=== PATIENT | female | born 1995 | race Caucasian/White ===

== ENCOUNTER → 2017-10-17 | Outpatient (CLI) | payer BC, OTHER ==
[~2017-10-17] MED LIST: CHOL100040 PO; MULT-506 PO
--- NOTE | 2017-10-17 11:11 | DIAGNOSTIC IMAGING REPORT ---
L KNEE 4 OR MORE CLINICAL HISTORY: LEFT PATELLAR PAIN COMPARISON STUDY: None. FINDINGS: No acute fracture or dislocation within the left knee. No significant knee effusion. Soft tissues are unremarkable. Cartilage spaces are maintained for age. No radiopaque foreign bodies. Small bony fragment at the tibial tubercle is likely chronic. IMPRESSION: No fracture or dislocation within the left knee. Electronically signed by: Declan Rosenberg M.D. 10/17/2017 11:10 AM Dictated Date/Time: 10/17/2017 11:08 AM
== END | disposition home or self-care (01) ==
LOC: C.RDSM 10:48
PROVIDERS: ATTEND Internal Medicine
DX: M25.562 Pain in left knee (principal); N39.0 Urinary tract infection, site not specified

== ENCOUNTER → 2018-01-01 | Outpatient (CLI) | payer OTHER ==
--- NOTE | 2018-01-01 15:44 | DIAGNOSTIC IMAGING REPORT ---
L LOWER EXT JOINT WITHOUT CLINICAL HISTORY: M25.562 left knee pain COMPARISON STUDY: Image radiographic study dated 10/17/2017 FINDINGS: Imaging was performed in the axial, sagittal, and coronal planes. There are no areas of marrow edema to indicate occult fracture or bone bruise. The anterior and posterior cruciate ligaments appear normal. The medial and lateral menisci appear intact. There is no evidence of medial or collateral ligament disruption. The patellar retinacular structures appear intact. There is moderate partial-thickness tear of the infrapatellar tendon. There is associated fluid/edema within the infrapatellar fat pad. There is a 9 mm avulsion fragment which likely arises from the anterior tibial tuberosity. IMPRESSION: Moderate partial-thickness tear of the infrapatellar tendon near the tibial insertion. At the level of the tear is a 9 mm avulsion fragment which likely arises from the anterior tibial tuberosity Electronically signed by: Nico Sherman M.D. 01/01/2018 3:43 PM Dictated Date/Time: 01/01/2018 3:38 PM
== END | disposition home or self-care (01) ==
LOC: C.MRIBC 14:59
PROVIDERS: ATTEND Internal Medicine
DX: M25.562 Pain in left knee (principal); S86.812A Strain of other muscle(s) and tendon(s) at lower leg level, left leg, initial encounter; X58.XXXA Exposure to other specified factors, initial encounter

== ENCOUNTER 2023-09-30 06:17 | Inpatient (IN) ==
[2023-09-30] MEDS ORDERED: OXYTOCIN 30 UNITS/NSS 30 UNITS/500 ML BAG IV PRN ×3 (07:12→21:39)
[2023-09-30] MEDS ORDERED: LACTATED RINGER'S 1,000 ML IV PRN (07:12)
--- NOTE | 2023-09-30 08:27 | History & Physical Report ---
Date of Service September 30, 2023 Assessment & Plan (1) Supervision of normal first : Plan: IUP at term with SPROM and spontaneous labor GBS- negative planning unmedicated epidural if requested anticipate vaginal Admission and Anticipated Discharge Date Admission Date: September 30, 2023 History of Present Illness Primary Care Provider: NO PCP Patient is a 28 yo female EDC 10/02/23 who presents with SPROM of clear fluid at 0140 -regular contractions started shortly after SPROM. has been uncomplicated except will need Rubella vaccine prior to discharge. GBS- negative Allergies Allergy/AdvReac Type Severity Reaction Status Date / Time No Known Drug Allergies Allergy Unknown . Verified 09/30/23 08:13 nickel AdvReac Unknown SKIN Verified 09/30/23 08:13 IRRITATION Home Medications Medication Instructions Recorded Confirmed Type cholecalciferol (vitamin D3) 1,000 mg PO DAILY 02/14/23 09/30/23 History docosahexaenoic acid [Algal 1 pill PO DAILY 02/14/23 09/30/23 History Dodge-3 DHA] prenat.vits,jeremy,osw-xsuj-tluxl 1 tab PO DAILY 02/14/23 09/30/23 History Patient History Medical History Cold sore Varicella vaccine Surgical History S/P ACL surgery S/P lateral meniscal repair S/P wisdom tooth extraction Family History Aunt Breast cancer Uncle Brain cancer Grandfather (Paternal) Lung cancer Mother Skin cancer Grandmother Uterine cancer Denies family history of Ovarian cancer Colorectal cancer Social History (Updated 09/30/23 @ 08:14 by Jie Soto RN) Smoking Status: Never smoker Do You Dip or Chew Tobacco: No; Hx Alcohol Use: No Hx Substance Use: No Preferred Language: [place] Communication Ability: Effective Facility Rehab Director Required: No Beliefs That Will Affect Care: None marital status: marital status details: Ravinder Blancas ( 27) [phone] Current Living Situation: Spouse Current Living Situation Comment: lives and 1 dog current occupational status: employed 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, [employer]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 Gender Identity: Female Assistive Devices: Contacts Review of Systems All systems reviewed & are unremarkable except as noted in HPI & below Physical Exam Constitutional: WD/WN, vitals as above Psychiatric: A+Ox3, euthymic affect Genitourinary: OB Exam Abdomen: + vertex, + estimated weight (8-9 pounds) and + regular contractions Manual OB Exam: + cervical dilation 6 cm, + cervical effacement 100%, + station -1 and + amniotic fluid clear Results & Data Vital Signs (Past 12 Hours) Vital Signs Temp Pulse Resp BP 09/30/23 07:41 98.2 F 18 09/30/23 07:00 86 122/73 09/30/23 06:41 176 H 140/111 H 09/30/23 06:29 20 09/30/23 06:29 98.2 F 20 Code Status & VTE Plan VTE Prophylaxis Plan VTE Prophylaxis will be ordered: No Coding Level of Care Code None Diagnoses Supervision of normal first Z34.00
[2023-09-30 08:44] LABS: Hematocrit (blood only) 37.7 % (37.0-47.0); Hemoglobin 13.4 g/dl (12.0-16.0); Mean Corpuscular Hemoglobin 32.5 pg (25.0-34.0); Mean Corpuscular Hgb Conc 35.5 g/dL (32.0-36.0); Mean Corpuscular Volume 91.5 fL (80.0-100.0); Mean Platelet Volume 11.9 fL (9.4-12.4); Platelet Count 166 K/uL (130-400); RDW Coefficient of Variation 11.7 % (11.5-14.5); RDW Standard Deviation 39.3 fL (36.4-46.3); Red Blood Count 4.12 M/uL (4.20-5.40); White Blood Count 17.95 K/ul (4.8-10.8)
[2023-09-30] MEDS: LIDOCAINE 1% LOCAL 20 ML VIAL INFIL PRN ×2 (21:30→22:15)
[2023-09-30] MEDS ORDERED: HYDROCORTISONE ACETATE 25 MG SUPP PR PRN (21:39)
[2023-09-30] MEDS ORDERED: DIPHTHERIA/TETANUS/PERTUSSIS Vaccine (Tdap, Age 7+yrs) 0.5mL SYR/VL IM ONE (21:39)
[2023-09-30] MEDS ORDERED: oxyCODONE/ACETAMINOPHEN 5mg/325mg TAB PO PRN (21:39)
[2023-09-30] MEDS ORDERED: bisacodyL 10 MG SUPP PR PRN (21:39)
[2023-09-30] MEDS ORDERED: BENZOCAINE 20% SPRY 85 APPLN/85 GM CAN EXT PRN (21:39)
--- NOTE | 2023-09-30 21:48 | Delivery Summary ---
Vaginal Delivery Summary Date of Service September 30, 2023 Vaginal Delivery Summary and 1st Degree LAC Patient is a 28-year-old 1 P0 female EDC of 10/02/2023 who presented with spontaneous rupture of membranes and then onset of spontaneous labor. She progressed to an anterior lip but required Pitocin augmentation to progressed to full dilation. Once fully dilated, she pushed effectively over intact perineum for delivery of a viable male infant. After the head was delivered the rest of the was delivered without maternal effort. He was placed on the mother's abdomen for further attention and drying. He was vigorous crying and moving all 4 limbs. After 4 minutes per the family's request, the cord was clamped and cut. Placenta was then expressed intact with a three-vessel cord. bleeding was controlled with fundal massage and dilute Pitocin. A first-degree vaginal laceration and first-degree right labial laceration were repaired with 3-0 chromic in the usual fashion. 1% lidocaine was used to anesthetize the laceration sites prior to repair. Estimated blood loss 250 cc. This was an unmedicated . Mother and were doing well after delivery. [facility] [place]aginal Delivery Charge Delivery Type Details: and 1st Degree LAC
[2023-09-30] MEDS: IBUPROFEN 600 MG TAB PO PRN (22:15)
[2023-09-30] MEDS: ACETAMINOPHEN 325 MG TAB PO PRN (22:15)
[2023-10-01] MEDS: IBUPROFEN 600 MG TAB PO PRN ×5 (03:20→19:31)
[2023-10-01 06:34] LABS: Hematocrit (blood only) 35.6 % (37.0-47.0); Hemoglobin 12.2 g/dl (12.0-16.0); Mean Corpuscular Hemoglobin 31.9 pg (25.0-34.0); Mean Corpuscular Hgb Conc 34.3 g/dL (32.0-36.0); Platelet Count 161 K/uL (130-400); RDW Coefficient of Variation 11.9 % (11.5-14.5); Red Blood Count 3.83 M/uL (4.20-5.40); White Blood Count 16.56 K/ul (4.8-10.8)
--- NOTE | 2023-10-01 07:44 | Obstetrical Progress Note ---
Date of Service October 01, 2023 Assessment & Plan (1) Encounter for care and examination after delivery: satisfactory course continue current care plan Subjective Ambulation: ambulating normally Voiding: no voiding problems Passing Gas:: Yes Diet Tolerance:: regular diet Lochia:: Small Feeding Type:: breast feeding Review of Systems All systems reviewed & are unremarkable except as noted in HPI & below Physical Exam Constitutional WD/WN, vitals as above Psychiatric A+Ox3, euthymic affect Genitourinary OB Exam Abdomen: + fundal height Fundus: + firm and + relation to umbilicus (1 below U) Results & Data Vital Signs (Past 12 Hours) Vital Signs Temp Pulse Pulse Resp BP BP O2 Del Method 10/01/23 03:30 98.1 F 82 16 125/71 Room Air 10/01/23 00:05 97.5 F L 83 16 115/70 Room Air 09/30/23 23:31 92 H 112/63 09/30/23 23:30 99.1 F 18 09/30/23 23:16 109 H 117/62 09/30/23 23:01 76 113/62 09/30/23 23:00 18 09/30/23 22:46 97 H 110/66 09/30/23 22:31 93 H 123/73 09/30/23 22:30 18 09/30/23 22:16 92 H 121/63 09/30/23 22:15 18 09/30/23 22:01 83 116/60 09/30/23 22:00 20 09/30/23 21:46 83 117/60 09/30/23 21:45 18 09/30/23 21:31 81 121/74 09/30/23 21:30 20
[2023-10-01] MEDS: ACETAMINOPHEN 325 MG TAB PO PRN (08:30)
[2023-10-01] MEDS: PRENATAL VITAMIN 1 TAB PO SCH (08:30)
[2023-10-01] MEDS: DOCUSATE SODIUM 100 MG CAP PO SCH ×2 (08:30→19:31)
[2023-10-01 19:48] VITALS: RESP 18
[2023-10-01] MEDS ORDERED: bisacodyL 5 MG TABEC PO SCH (20:00)
[2023-10-02] MEDS: IBUPROFEN 600 MG TAB PO PRN ×2 (00:18→05:58)
[2023-10-02 06:08] LABS: Hematocrit (blood only) 34.8 % (37.0-47.0); Hemoglobin 11.7 g/dl (12.0-16.0)
--- NOTE | 2023-10-02 07:29 | Obstetrical Progress Note ---
Date of Service October 02, 2023 Assessment & Plan (1) Encounter for care and examination after delivery: Plan Doing well. Plan d/c. Instructions given. Day #:: 2 Subjective Ambulation: ambulating normally Voiding: no voiding problems Passing Gas:: Yes Diet Tolerance:: regular diet Lochia:: Small Feeding Type:: breast feeding Doing well. Physical Exam Constitutional WD/WN, vitals as above Cardiovascular Extremities: no calf tenderness and no edema Gastrointestinal (Abdomen) soft, nt , nd ff/nt 1 b/l u Psychiatric A+Ox3, euthymic affect Results & Data Vital Signs (Past 12 Hours) Vital Signs Temp Pulse Resp BP Pulse Ox O2 Del Method 10/02/23 00:00 36.6 C 76 18 112/70 96 Room Air 10/01/23 19:30 36.8 C 84 18 99/60 L 98 Room Air
[2023-10-02] MEDS: DOCUSATE SODIUM 100 MG CAP PO SCH (07:56)
[2023-10-02] MEDS: PRENATAL VITAMIN 1 TAB PO SCH (07:56)
[2023-10-02 08:06] VITALS: BP 110/68; PULSE 73; TEMP 97.5; O2SAT 98
== END 2023-10-02 12:45 | disposition home health service (06) | DRG 807 ==
LOC: OPB 06:17 → 4S1 06:20 → 4E2 10-01 00:08

== ENCOUNTER 2025-05-18 13:25 | Inpatient (IN) ==
[2025-05-18] MEDS ORDERED: OXYTOCIN 30 UNITS/NSS 30 UNITS/500 ML BAG IV PRN ×2 (13:58→16:24)
[2025-05-18] MEDS ORDERED: LACTATED RINGER'S 1,000 ML IV PRN (13:58)
[2025-05-18] MEDS ORDERED: LIDOCAINE 1% LOCAL 20 ML VIAL INFIL PRN (13:58)
[2025-05-18 14:42] LABS: Hematocrit (blood only) 40.3 % (37.0-47.0); Hemoglobin 14.2 g/dl (12.0-16.0); Mean Corpuscular Hemoglobin 31.4 pg (25.0-34.0); Mean Corpuscular Volume 89.2 fL (80.0-100.0); Platelet Count 171 K/uL (130-400); RDW Standard Deviation 40.0 fL (36.4-46.3); Red Blood Count 4.52 M/uL (4.20-5.40); White Blood Count 15.36 K/ul (4.8-10.8)
[2025-05-18] MEDS ORDERED: BENZOCAINE 20% SPRY 85 APPLN/85 GM CAN EXT PRN (16:24)
[2025-05-18] MEDS ORDERED: IBUPROFEN 600 MG TAB PO PRN (16:24)
[2025-05-18] MEDS ORDERED: HYDROCORTISONE ACETATE 25 MG SUPP PR PRN (16:24)
--- NOTE | 2025-05-18 16:28 | Delivery Summary ---
Vaginal Delivery Summary Date of Service May 18, 2025 Vaginal Delivery Summary Presented in spontaneous labor and progressed without augmentation to complete complete +2 station. Patient pushed over approximately 2-3 contractions to achieve delivery. Had the delivered without difficulty quickly followed by shoulders and body. was noted to be vigorous upon delivery and a 5- minute delayed cord clamping was initiated per patient request. Cord was then double clamped and cut remained on maternal abdomen. Cord blood obtained and attention turned to delivery the placenta was delivered intact with three-vessel cord gentle cord traction. Inspection of perineum vagina and cervix noted no lacerations. No complications noted. Instrument and sponge counts correct at completion of the case. Both mother and stable in the immediate post delivery timeframe [facility] Vaginal Delivery Charge Delivery Type Details:
[2025-05-18] MEDS: DIPHTHER/TETAN/PERTUS Vaccine (Tdap, Adol/Adult) 0.5mL IM ONE (16:32)
[2025-05-18 18:45] VITALS: RESP 18
[2025-05-18] MEDS: DOCUSATE SODIUM 100 MG CAP PO SCH (20:23)
[2025-05-18] MEDS: ACETAMINOPHEN 325 MG TAB PO PRN (23:31)
--- NOTE | 2025-05-19 05:59 | Obstetrical Progress Note ---
Date of Service May 19, 2025 Assessment & Plan (1) care and examination: Plan: Patient is post status day 1. Patient is currently stable. Patient desires to go home. Will discharge today. Admission and Anticipated Discharge Date Admission Date: May 18, 2025 Supervising Physician Co-Signing Physician Notes Patient seen with resident and agree with the above findings and plan. Stable for discharge at 24 hours if preferred. Subjective 29 yo post- day 1 s/p [] Ambulation: ambulating normally Voiding: no voiding problems Passing Gas:: Yes Diet Tolerance:: regular diet Feeding Type:: breast feeding Current Pain Level:Improved. When cramping a 5-6/10. Resting comfortably this AM in NAD. Patient admits to some burning while peeing, but says its not from the urethra. She states that the peribottle helps. Denies fevers/chills, COLVIN, CP/palp, SOB, N/V, LE pain, breast pain/dschrg. Review of Systems Review of Systems: as per Subjective HPI Physical Exam Constitutional: WD/WN, vitals as above Respiratory: normal respiratory effort, lungs clear to auscultation Cardiovascular: RRR, no murmur, no edema Extremities: no calf tenderness and no edema Gastrointestinal (Abdomen): Percussion/Palpation: abdomen soft; abdomen nontender Skin: no rashes, warm and dry Psychiatric: Eye Contact: good eye contact Speech: normal rate/rhythm/volume of speech Thought Process: linear/logical thought process Genitourinary: uterus was firm and @ level of umbilicus Results & Data Vital Signs (Past 12 Hours) Vital Signs Temp Pulse Resp BP Pulse Ox O2 Del Method 05/19/25 03:40 36.7 C 87 18 95/60 L 96 Room Air 05/18/25 23:10 36.8 C 68 18 105/68 100 Room Air 05/18/25 20:05 36.8 C 81 18 112/68 97 Room Air 05/18/25 18:15 36.7 C 96 H 18 107/66 99 Room Air Laboratory Results 05/18/25 Range/Units 14:23 WBC 15.36 H (4.8-10.8) K/ul RBC 4.52 (4.20-5.40) M/uL Hgb 14.2 (12.0-16.0) g/dl Hct 40.3 (37.0-47.0) % MCV 89.2 (80.0-100.0) fL MCH 31.4 (25.0-34.0) pg MCHC 35.2 (32.0-36.0) g/dL RDW Std Deviation 40.0 (36.4-46.3) fL RDW Coeff of Jenni 12.3 (11.5-14.5) % Plt Count 171 (130-400) K/uL MPV 11.3 (9.4-12.4) fL Treponema pallidum Ab Negative (Negative)
[2025-05-19] MEDS: PRENATAL VITAMIN 1 TAB PO SCH (07:25)
[2025-05-19 11:18] VITALS: TEMP 98.2
[2025-05-19 16:36] VITALS: BP 99/58; O2SAT 98
[2025-05-19 16:51] VITALS: PULSE 87
--- NOTE | 2025-05-21 12:26 | Coding Query ---
CODING QUERY To promote full compliance with coding requirements relating to patient care, provider participation is requested in all cases of mechanical drafter uncertainty. Please assist us with the question(s) below: Coding Question(s): Please document weeks of gestation Physician's Response(s): 39 Thank you Alisonheather Trammell Principal Diagnosis: "that condition established after study, to be chiefly responsible for occasioning the admission of the patient to the hospital for care." Co-Existing Principal Diagnosis: "when two or more diagnoses equally meet the criteria for principal diagnosis as determined by the circumstances of admission, diagnostic work up, and/or therapy provided, and the Alphabetic Index, Tabular List, or another coding guideline does not provide sequencing direction, any one of the diagnoses may be sequenced first." "When the physician has documented what appears to be a current diagnosis in the body of the record, but has not included the diagnosis in the final diagnostic statement, the physician should be asked whether the diagnosis should be added." (Source Coding [facility] 2 QTR90. p3-4) BENITA
== END 2025-05-19 17:55 | disposition home or self-care (01) | DRG 807 ==
LOC: 4S1 13:25 → 4E2 17:59